=== PATIENT | female | born 1955 | race Caucasian/White ===

== ENCOUNTER 2023-08-31 10:46 | Inpatient (IN) | payer MEDICARE, BC ==
[~2023-08-31] VITALS: Ht 170.2 cm; Wt 116.1 kg
[2023-08-31] MEDS ORDERED: Meclizine 25 MG TAB PO SCH (11:30)
[2023-08-31] MEDS ORDERED: Famotidine 20 MG TAB PO SCH (11:30)
[2023-08-31] MEDS ORDERED: LR 1,000 ML IV SCH (11:30)
[2023-09-01] VITALS (14 sets, daily range): BP systolic 109–119; BP diastolic 51–77; PULSE 65–79; TEMP 97.7–98.8
[2023-09-01] MEDS ORDERED: XALATAN EYE DROPS OU (07:01)
[2023-09-01] MEDS ORDERED: PRILOSEC 20MG20 MG PO (07:01)
[2023-09-01] MEDS ORDERED: FLONASEALLERGY NS (07:02)
[2023-09-01] MEDS ORDERED: BENADRYL25 M2 PO (07:04)
[2023-09-01] MEDS ORDERED: ZYRTEC 10MG10 MG PO (07:06)
[2023-09-01] MEDS ORDERED: Rocuronium 50 MG/5 ML Multi-Dose VIAL ONE ×2 (07:24→08:53)
[2023-09-01] MEDS ORDERED: fentaNYL 50 MCG/ML 2 ML VIAL ONE ×2 (07:24→09:35)
[2023-09-01] MEDS ORDERED: Lidocaine PF 2% (20 MG/ML) 5 ML VIAL ONE (07:25)
[2023-09-01] MEDS ORDERED: NS 100 ML IV ONE (07:25)
[2023-09-01] MEDS ORDERED: dexAMETHasone 10 MG/ML VIAL ONE (07:26)
[2023-09-01] MEDS ORDERED: NS 10 ML IV ONE (07:26)
[2023-09-01] MEDS ORDERED: Ondansetron 4 MG/2 ML VIAL ONE (07:26)
[2023-09-01] MEDS ORDERED: Ondansetron 4 MG/2 ML VIAL IV PRN ×2 (08:15→10:30)
[2023-09-01] MEDS ORDERED: droPERidol 2.5 MG/ML 2 ML VIAL IV PRN (08:15)
[2023-09-01] MEDS ORDERED: hydrALAZINE 20 MG/ML 1 ML VIAL IV PRN (08:15)
[2023-09-01] MEDS ORDERED: HYDROmorphone 1 MG/1 ML SYRINGE [PACU/SDC ONLY] IV PRN (08:15)
[2023-09-01] MEDS ORDERED: fentaNYL 50 MCG/ML 1 ML SYRINGE/VIAL [PACU/SDC ONLY] IV PRN (08:15)
[2023-09-01] MEDS ORDERED: Ketorolac 30 MG/ML VIAL ONE (08:16)
[2023-09-01] MEDS ORDERED: ePHEDrine 50 MG/ML VIAL ONE (08:53)
[2023-09-01] MEDS ORDERED: oxyCODONE 5 MG TAB PO PRN (10:30)
[2023-09-01] MEDS ORDERED: LR 1,000 ML IV SCH (10:30)
[2023-09-01] MEDS ORDERED: HYDROmorphone 0.5 MG/0.5 ML SYRINGE IV PRN (10:30)
[2023-09-01] MEDS ORDERED: Naloxone 0.4 MG/ML VIAL IV PRN (10:30)
--- NOTE | 2023-09-01 10:35 | NUR ---
PT UP TO THE FLOOR AT THIS TIME, A/O X4, VITALS STAPLE, FAMILY AT BEDSIDE, DRESSING TO ABDOMEN COVERING MIDLINE AND 2 LAP SITES CLEAN AND DRY. TOLERATING CLEAR LIQUID DIET WELL, REMAINS ON 2L NC. WILL CONTINUE TO MONITOR.
[2023-09-01] MEDS ORDERED: Acetaminophen 500 MG TAB PO SCH (10:56)
[2023-09-01] MEDS ORDERED: Ibuprofen 600 MG TAB PO SCH (13:56)
[2023-09-01] MEDS ORDERED: Latanoprost 0.005% Ophth Soln 2.5 ML BOTTLE OP SCH (21:00)
[2023-09-02] VITALS (8 sets, daily range): BP systolic 102–119; BP diastolic 58–70; PULSE 63–70; TEMP 97.8–99.1
--- NOTE | 2023-09-02 07:48 | NUR ---
Patient sitting up in bed, A&Ox4. VSS. IV CDI. Denies pain and discomfort. Incision site CDI. Call light within reach
--- NOTE | 2023-09-02 10:00 | NUR ---
Dr Moss aware that patient does not have an IV site and is okay with not restarting
[2023-09-02] MEDS ORDERED: Docusate Sodium 100 MG CAP PO SCH (10:25)
--- NOTE | 2023-09-02 11:03 | NUR ---
Electronic Engineering Draftsperson met with patient to complete intake. Patient sitting up in bed watching tv, having pain in her shoulder and abdomen. Patient verified that she lives in [place] with her Binh ([phone]). She sees Dr. Rupinder Fregoso as her PCP and uses [facility]. Patient has a CPAP at home. She denies having a DPOA and states she is not interested in completing one at this time. 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 She is independent and active. Patient denies any discharge needs at this time. Discharge Plan: Home
--- NOTE | 2023-09-02 11:42 | NUR ---
Initial visit; Patient very pleasant and thanked Wood Furniture Assembler for offering prayer, encouragement and God's blessings.
[2023-09-03] VITALS (8 sets, daily range): BP systolic 110–139; BP diastolic 67–83; PULSE 57–67; TEMP 97.5–97.9
--- NOTE | 2023-09-03 07:38 | NUR ---
Pt sitting up in chair. A&Ox4. VSS. S1S2. Clear lung sounds on RA. ABD is rounded, soft, non-tender with audible bowel sounds. Per Pt, no BM this AM. Palpable pulses in all extremities with normal strength. No IV site. Midline incision has gauze dressing, CDI. x2 lap sites in LRQ - bandaids, CDI. Pt reports pain 3/10 when moving or first gettting up, but "nothing out of the abdnormal." Pt denies n/v, dizziness. Pt reported mild headache. Administered meds as per EMAR. Pt did IS 3 times with proper technique - raised to [id number]. No further needs at this time. Call light in reach.
--- NOTE | 2023-09-03 10:43 | NUR ---
Pt reported they had a large, hard BM a few minutes after X-Ray was taken. Pt flushed prior to notifying staff. Per Pt, did not see if bridge had passed through. No further needs at this time. Call light in reach.
[2023-09-03] MEDS ORDERED: Polyethylene Glycol 3350 17 GM PDS PO SCH (12:21)
--- NOTE | 2023-09-03 14:30 | NUR ---
Educated Pt and family on discharge instructions and information. Answered Pt questions. No further needs. Pt does not have an IV. Pt transported to vehicle by WC, accompanied by PCT.
== END 2023-09-03 14:31 | disposition home or self-care (01) | DRG 345 ==
LOC: INPTSU 09-01 06:02 → SDCO 09-01 06:02 → EDSTATUS 09-01 08:00 → SURG 09-01 10:35
PROVIDERS: ADMIT Surgery
PROC: 0DJD4ZZ Inspection of Lower Intestinal Tract, Percutaneous Endoscopic Approach (ICD-10-PCS; principal; 2023-09-01 08:00)
PROC: 0WJG0ZZ Inspection of Peritoneal Cavity, Open Approach (ICD-10-PCS; 2023-09-01 08:00)
DX: T18.3XXA Foreign body in small intestine, initial encounter (principal); Z68.41 Body mass index [BMI] 40.0-44.9, adult; K42.9 Umbilical hernia without obstruction or gangrene; F41.9 Anxiety disorder, unspecified; G89.29 Other chronic pain; F32.A Depression, unspecified; E66.01 Morbid (severe) obesity due to excess calories; I45.10 Unspecified right bundle-branch block; G47.33 Obstructive sleep apnea (adult) (pediatric); G62.9 Polyneuropathy, unspecified; K29.70 Gastritis, unspecified, without bleeding; K57.90 Diverticulosis of intestine, part unspecified, without perforation or abscess without bleeding; Z53.31 Laparoscopic surgical procedure converted to open procedure; Z90.49 Acquired absence of other specified parts of digestive tract; Z88.6 Allergy status to analgesic agent; Z91.011 Allergy to milk products; Z90.89 Acquired absence of other organs; Z90.710 Acquired absence of both cervix and uterus; Z79.899 Other long term (current) drug therapy; Z99.89 Dependence on other enabling machines and devices
CPT/HCPCS: A9284; J0665; J0690; J1100; J1170; J1650; J1885; J2405; J2704; J3010; J7120

== ENCOUNTER 2023-12-03 10:09 | Inpatient (IN) | payer MEDICARE, BC ==
[~2023-12-03] VITALS: Ht 170.2 cm; Wt 114.8 kg
[~2023-12-03 10:09] MED LIST: BENADRYL25 M2 PO; FLONASEALLERGY NS; PRILOSEC 20MG20 MG PO; XALATAN EYE DROPS OU; ZYRTEC 10MG10 MG PO
[2023-12-03 10:30] LABS: BASO % 0.4 % (0.0-2.0); EOS # 0.1 K/mm3 (0.0-0.7); EOS % 1.4 % (0.0-4.0); GRAN # 5.2 K/mm3 (1.4-6.5); GRAN % 65.5 % (42.2-75.2); HEMATOCRIT 39.5 % (37.0-47.0); HEMOGLOBIN 12.5 g/dl (12.5-16.0); LYMPH # 2.1 K/mm3 (1.2-3.4); LYMPH % 26.4 % (20.0-51.0); MEAN CELL VOLUME 87 fl (80.0-100.0); MEAN CORPUSCULAR HEMOGLOBIN 28 pg (27-31); MEAN CORPUSCULAR HGB CONC 32 g/dl (33.0-37.0); MEAN PLATELET VOLUME 9.8 fl (7.4-10.4); MONO # 0.5 K/mm3 (0.1-0.6); PLATELET COUNT 220 K/mm3 (130-400); RED BLOOD COUNT 4.55 M/mm3 (4.10-5.30); REDCELL DISTRIBUTION WIDTH-CV 13.2 % (11.5-14.5)
[2023-12-03] MEDS ORDERED: HYDROmorphone 0.5 MG/0.5 ML SYRINGE IV ONE ×3 (10:30→14:15)
[2023-12-03 10:34] LABS: INR 0.9 (0.8-3.0); PROTHROMBIN TIME 10.4 SECONDS (9.7-12.8)
[2023-12-03 11:17] LABS: ALBUMIN 3.8 g/dL (3.4-4.8); BILIRUBIN,TOTAL 0.2 mg/dL (0.2-1.2); CALCIUM 9.4 mg/dL (8.4-10.2); CREATININE, serum 0.77 mg/dL (0.57-1.11); POTASSIUM 3.9 mEq/L (3.5-4.5); TOTAL PROTEIN 7.2 g/dl (6.2-8.1)
[2023-12-03] MEDS ORDERED: D5 1/2 NS 1,000 ML IV SCH (12:30)
[2023-12-03] MEDS ORDERED: Morphine 4 MG/ML VIAL IV PRN (12:30)
[2023-12-03] MEDS ORDERED: Naloxone 0.4 MG/ML VIAL IV PRN (12:30)
[2023-12-03] MEDS ORDERED: oxyCODONE 5 MG TAB PO PRN (12:30)
[2023-12-03 12:53] LABS: COLLECTION METHOD IN
[2023-12-03 13:04] LABS: PH 7.5 (5.0-8.5); URINE APPEARANCE CLEAR (CLEAR/HAZY); URINE BLOOD NEGATIVE (NEGATIVE); URINE COLOR YELLOW (YELLOW); URINE GLUCOSE NEGATIVE (NEGATIVE); URINE KETONE NEGATIVE (NEGATIVE); URINE NITRATE NEGATIVE (NEGATIVE); URINE PROTEIN(semi-quant) NEGATIVE (NEGATIVE)
[2023-12-03] MEDS ORDERED: Acetaminophen 500 MG TAB PO SCH (13:28)
--- NOTE | 2023-12-03 15:18 | NUR ---
Pt. to the floor from ER. Pt. is A&OX3. Pt. positioned in bed for comfort. Pt. denies needs at this time.
[2023-12-03 15:28] VITALS: BP 115/73; PULSE 69; TEMP 98.7
--- NOTE | 2023-12-03 15:51 | NUR ---
Pt. sitting sitting up in bed. Rates pain at a 4 on pain scale at this time. Splint to rt. lower extremity. Pt. denies further needs, call light within reach.
[2023-12-03 17:00] VITALS: BP_SYST 115
[2023-12-03] MEDS ORDERED: Ondansetron 4 MG/2 ML VIAL IV PRN (18:30)
[2023-12-03 18:40] VITALS: BP 115/73; PULSE 68; TEMP 98.7
[2023-12-03 20:00] VITALS: BP 112/71; BP 157/67; PULSE 76; PULSE 93; TEMP 97.9; TEMP 98.7
[2023-12-03 20:01] VITALS: BP_SYST 126
--- NOTE | 2023-12-03 20:01 | NUR ---
Patient assessed at this time, see shift assessment, reports pain to right leg PS of 5/10, medicated with oxycodone, with IV infusing well on left forearm, splint to right leg CDI, NPO postmidnight instructed, ice pack on, denies further needs, call light and personal items within reach, will continue to monitor.
[2023-12-03 23:58] VITALS: BP 126/79; PULSE 77; TEMP 98.3
[2023-12-04] VITALS (12 sets, daily range): BP systolic 104–146; BP diastolic 67–91; PULSE 62–78; TEMP 97.4–98.2
--- NOTE | 2023-12-04 04:10 | NUR ---
Patient complained of pain on her right leg, PS of 7/10, medicated with oxycodone and tylenol at this time with sips of water, NPO maintained, patient doesn't want morphine, ICE pack on, will continue to monitor.
--- NOTE | 2023-12-04 06:26 | NUR ---
Patient resting in bed, with CPAP on, looks comfortable.
[2023-12-04] MEDS ORDERED: Famotidine 20 MG TAB PO SCH (09:00)
[2023-12-04] MEDS ORDERED: Meclizine 25 MG TAB PO SCH (09:00)
[2023-12-04] MEDS ORDERED: LR 1,000 ML IV SCH (09:00)
[2023-12-04] MEDS ORDERED: FERROUS SU325 MG/TAB PO (09:11)
[2023-12-04] MEDS ORDERED: Ondansetron 4 MG/2 ML VIAL IV PRN (10:30)
--- NOTE | 2023-12-04 10:54 | NUR ---
PT RESTING IN BED, ALERT AND ORIENTEDX4. RATES PAIN 6/10 IN THE RIGHT LEG, GAVE PAIN PILL. PT IS VERY NAUSEOUS DUE TO THE PAIN. GAVE ZOFRAN. PT NO LONGER NPO. SURGEY WILL BE TOMORROW PER DR DOVER. ASSESSED PT. UNABLE TO FEEL PEDAL PULSE IN RIGHT FOOT DUE TO CAST. BLOOD RETURN GOOD IN TOES. PT FEELS ANXIOUS THAT SHE HAS TO WAIT ANOTHER DAY FOR SURGEY. GAVE MORNING MEDS. NO OTHER COMPLAINTS AT THIS TIME. CALL LIGHT WITHIN REACH.
--- NOTE | 2023-12-04 12:10 | NUR ---
Data: Patient accepted spiritual care visit offered during Accounting Specialist rounds. Patient's sister and friend are visiting. They had been singing hymns. Patient accepted prayer. Assessment: Patient is enjoying the company of her visitors; appreciates prayer. Plan of Care: Accounting Specialist accepted recommendations from Patient's Friend for Faith music artists. Accounting Specialist offered a prayer. All thanked Accounting Specialist for the visit. Chaplains will remain available as needed/requested while Patient is admitted to this hospital.
--- NOTE | 2023-12-04 13:10 | NUR ---
PT IS VERY ANXIOUS ABOUT SURGERY AND IT BEING PUSHED BACK TO TOMORROW. PT THINKS ANXIETY IS MAKING HER NAUSOUS. PT REQUESTED ANXIETY MEDS. CALLED LUIZ NAVARRO AND ASKED ABOUT. NO NEW ORDERS GIVEN. SAID SHE WOULD GET BACK TO ME.
[2023-12-04] MEDS ORDERED: clonazePAM 0.5 MG TAB PO PRN (14:30)
--- NOTE | 2023-12-04 14:30 | NUR ---
Pattern Wheel Maker met with patient to complete initial intake and discuss discharge planning. Patient's friend, Nahomi is at bedside. Patient stated her daughter, Che (ph#[phone]) has also been here. Patient lives in [place] with her , Binh (ph#[phone]) and sees Dr. Gonzalez for primary care. Patient gets medications from [facility] with no difficulties and normally does not require any DME besides a CPAP. Patient stated she is normally independent with ADLS including driving. 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 Patient does not have DPOA-HC and would want to talk with her before deciding if she would want to complete one or not. SW advised patient that she will assist with any discharge recommendations. Discharge Planning: Surgery tomorrow, PT/OT ricarda to follow
--- NOTE | 2023-12-04 16:59 | NUR ---
TALKED TO RAMON DEE ABOUT SWITCHING PT TO DILAUDED INSTEAD OF MORPHINE DUE TO MORPHINE MAKING PT NAUSEOUS AND PT IS ALREADY UNABLE TO KEEP ANYTHING DOWN AT THIS TIME.
[2023-12-04] MEDS ORDERED: HYDROmorphone 0.5 MG/0.5 ML SYRINGE IV PRN (18:00)
--- NOTE | 2023-12-04 20:40 | NUR ---
PT A&O X4 LAYING IN BED. VSS. RATING PAIN TO RLE 4-510, GAVE PRN PAIN MED PER MAR. PT UNABLE TO KEEP PO INTAKE DOWN WITHOUT FEELING N/V. SPLINT TO RLE INTACT. SANCHEZ TO DD WITH YELLOW OUTPUT. IVF INFUSING TO LEFT AC. SCD TO LLE. PT EDUCATED ON NPO AT MIDNIGHT. DENIES FURTHER NEEDS. CALL LIGHT IN REACH
[2023-12-05] VITALS (12 sets, daily range): BP systolic 103–131; BP diastolic 65–87; PULSE 63–78; TEMP 97.8–98.5
--- NOTE | 2023-12-05 05:52 | NUR ---
PT RESTING IN BED WITH UNLABORED RESP & CPAP ON. CALL LIGHT IN REACH
[2023-12-05 06:05] LABS: BASO % 0.1 % (0.0-2.0); EOS % 0.2 % (0.0-4.0); GRAN # 7.6 K/mm3 (1.4-6.5); GRAN % 78.7 % (42.2-75.2); HEMOGLOBIN 10.7 g/dl (12.5-16.0); LYMPH # 1.4 K/mm3 (1.2-3.4); LYMPH % 14.8 % (20.0-51.0); MEAN CELL VOLUME 84 fl (80.0-100.0); MEAN CORPUSCULAR HEMOGLOBIN 28 pg (27-31); MEAN CORPUSCULAR HGB CONC 33 g/dl (33.0-37.0); MONO # 0.6 K/mm3 (0.1-0.6); MONO % 5.9 % (1.7-9.3); PLATELET COUNT 200 K/mm3 (130-400); RED BLOOD COUNT 3.85 M/mm3 (4.10-5.30); REDCELL DISTRIBUTION WIDTH-CV 13.4 % (11.5-14.5)
[2023-12-05 06:06] LABS: HEMATOCRIT 32.5 % (37.0-47.0)
[2023-12-05 06:23] LABS: CALCIUM 8.7 mg/dL (8.4-10.2); CREATININE, serum 0.71 mg/dL (0.57-1.11); POTASSIUM 3.9 mEq/L (3.5-4.5)
--- NOTE | 2023-12-05 08:30 | NUR ---
Pt. sitting up in bed. Pt. is A&Ox3, assessment complete. Pt. reports Chest pain at a 5 on pain scale, LUIZ Khan notified, ekg and troponin ordered. Pt. also reports pain to rt. leg at a 5. Gave meds per orders. Pt. also reports nausea, gave meds per orders. Consents for surgery signed. Pt. denies further needs, call light within reach.
[2023-12-05] MEDS ORDERED: fentaNYL 50 MCG/ML 5 ML VIAL ONE (08:33)
[2023-12-05] MEDS ORDERED: Ondansetron 4 MG/2 ML VIAL ONE (08:33)
[2023-12-05] MEDS ORDERED: Lidocaine PF 2% (20 MG/ML) 5 ML VIAL ONE (08:33)
--- NOTE | 2023-12-05 09:15 | NUR ---
Dr. Coffman notified of elevated troponin.
--- NOTE | 2023-12-05 21:00 | NUR ---
PT A&O X4 LAYING IN BED. VSS. PT RATING PAIN TO RLE /10 & DENIES THE NEED FOR PAIN MEDS. DENIES N/V. SPLINT TO RLE INTACT & ELEVATED ON PILLOW WITH ICEPACKS IN PLACE. SANCHEZ TO DD WITH YELLOW OUTPUT. SCD TO LLE. PT DENYING OTHER NEEDS. CALL LIGHT IN REACH
[2023-12-06] VITALS (12 sets, daily range): BP systolic 107–132; BP diastolic 69–87; PULSE 67–76; TEMP 97.7–98.4
--- NOTE | 2023-12-06 06:23 | NUR ---
PT RESTING IN BED WITH UNLABORED RESP & HOME CPAP ON
[2023-12-06 06:35] LABS: BASO % 0.2 % (0.0-2.0); EOS % 0.5 % (0.0-4.0); GRAN # 5.9 K/mm3 (1.4-6.5); GRAN % 70.6 % (42.2-75.2); HEMOGLOBIN 11.5 g/dl (12.5-16.0); LYMPH # 1.8 K/mm3 (1.2-3.4); LYMPH % 21.8 % (20.0-51.0); MEAN CELL VOLUME 85 fl (80.0-100.0); MEAN CORPUSCULAR HEMOGLOBIN 29 pg (27-31); MEAN CORPUSCULAR HGB CONC 34 g/dl (33.0-37.0); MEAN PLATELET VOLUME 10.1 fl (7.4-10.4); MONO # 0.5 K/mm3 (0.1-0.6); MONO % 6.5 % (1.7-9.3); PLATELET COUNT 212 K/mm3 (130-400); RED BLOOD COUNT 4.03 M/mm3 (4.10-5.30); REDCELL DISTRIBUTION WIDTH-CV 13.3 % (11.5-14.5)
[2023-12-06 06:37] LABS: HEMATOCRIT 34.1 % (37.0-47.0)
[2023-12-06 06:48] LABS: CREATININE, serum 0.7 mg/dL (0.57-1.11); POTASSIUM 3.9 mEq/L (3.5-4.5)
--- NOTE | 2023-12-06 10:08 | NUR ---
Pt. sitting up in bed. Pt. is A&OX3, assessment complete. INT to lt. ac leaking. Site discontinued. New site started, 20g to rt. hand. Pt. tolerated well. Pt. reports pain to rt. foot at a 4 on pain scale, gave Tylenol. Pt. denies further needs, call light within reach.
--- NOTE | 2023-12-06 20:00 | NUR ---
PT A&O X4 LAYING IN BED WITH SISTER AT BEDSIDE. VSS. REPORTING PAIN TO RLE IS 3/10, GAVE SCHEDULED TYLNEOL & ICEPACK. SPLINT TO RLE INTACT & ELEVATED ON PILLOW. PT DENIES N/V. SANCHEZ TO DD WITH YELLOW OUTPUT. IVF INFUSING TO RT WRIST VIA PUMP. SCD TO LLE. PT DENIES OTHER NEEDS AT THIS TIME. CALL LIGHT IN REACH
[2023-12-06] MEDS ORDERED: diphenhydrAMINE 25 MG CAP PO PRN (21:15)
[2023-12-07] VITALS (17 sets, daily range): BP systolic 103–132; BP diastolic 50–90; PULSE 62–89; TEMP 97.1–968.1
--- NOTE | 2023-12-07 | NUR ---
PT REPORTING PAIN 10/15 TO RLE & BACK, GAVE PRN DILAUDID PER JUL. PT NOW NPO. HOME CPAP ON. PT DENYING OTHER NEEDS. CALL LIGHT IN REACH
[2023-12-07] MEDS ORDERED: Meclizine 25 MG TAB PO SCH (06:00)
[2023-12-07 06:01] LABS: BASO % 0.4 % (0.0-2.0); EOS # 0.2 K/mm3 (0.0-0.7); GRAN # 4.7 K/mm3 (1.4-6.5); GRAN % 62.5 % (42.2-75.2); HEMOGLOBIN 11.5 g/dl (12.5-16.0); LYMPH # 2.1 K/mm3 (1.2-3.4); LYMPH % 27.5 % (20.0-51.0); MEAN CELL VOLUME 88 fl (80.0-100.0); MEAN CORPUSCULAR HEMOGLOBIN 29 pg (27-31); MEAN CORPUSCULAR HGB CONC 33 g/dl (33.0-37.0); MEAN PLATELET VOLUME 9.9 fl (7.4-10.4); MONO # 0.6 K/mm3 (0.1-0.6); MONO % 7.3 % (1.7-9.3); PLATELET COUNT 208 K/mm3 (130-400); RED BLOOD COUNT 4.04 M/mm3 (4.10-5.30); REDCELL DISTRIBUTION WIDTH-CV 13.7 % (11.5-14.5)
[2023-12-07 06:17] LABS: CREATININE, serum 0.69 mg/dL (0.57-1.11); HEMATOCRIT 35.4 % (37.0-47.0); POTASSIUM 3.8 mEq/L (3.5-4.5)
[2023-12-07] MEDS ORDERED: dexAMETHasone 10 MG/ML VIAL ONE (06:36)
[2023-12-07] MEDS ORDERED: NS 10 ML IV ONE (06:36)
[2023-12-07] MEDS ORDERED: fentaNYL 50 MCG/ML 2 ML VIAL ONE (06:36)
[2023-12-07] MEDS ORDERED: Lidocaine PF 2% (20 MG/ML) 5 ML VIAL ONE (06:36)
[2023-12-07] MEDS ORDERED: Ondansetron 4 MG/2 ML VIAL ONE (06:36)
[2023-12-07] MEDS ORDERED: Ondansetron 4 MG/2 ML VIAL IV PRN ×2 (06:45→09:45)
[2023-12-07] MEDS ORDERED: hydrALAZINE 20 MG/ML 1 ML VIAL IV PRN (06:45)
[2023-12-07] MEDS ORDERED: fentaNYL 50 MCG/ML 1 ML SYRINGE/VIAL [PACU/SDC ONLY] IV PRN (06:45)
[2023-12-07] MEDS ORDERED: HYDROmorphone 1 MG/1 ML SYRINGE [PACU/SDC ONLY] IV PRN (06:45)
[2023-12-07] MEDS ORDERED: droPERidol 2.5 MG/ML 2 ML VIAL IV PRN (06:45)
--- NOTE | 2023-12-07 06:54 | NUR ---
PT OFF FLOOR TO OR
--- NOTE | 2023-12-07 07:00 | NUR ---
Pt down in surgery this AM during report. Pt's sister in room, Janie. No needs at this time.
[2023-12-07] MEDS ORDERED: Midazolam 2 MG/2 ML VIAL ONE (07:09)
[2023-12-07] MEDS ORDERED: LR 1,000 ML IV ONE (08:48)
[2023-12-07] MEDS ORDERED: Magnes Hydrox (MOM) 80 MG/ML 30 ML CUP PO PRN (09:45)
[2023-12-07] MEDS ORDERED: NS 1,000 ML IV SCH (09:45)
[2023-12-07] MEDS ORDERED: traMADol 50 MG TAB PO PRN (10:00)
--- NOTE | 2023-12-07 11:05 | NUR ---
PATIENT BACK IN ROOM POST-OP. ORIENTED BUT DROWSY. VSS. PACU REPORTS GIVING PAIN MEDS BEFORE TRANSFER TO FLOOR, PATIENT APPEARS COMFORTABLE. BEDSIDE RN AT BEDSIDE, SEE CHARTING. PATIENT DOING WELL. AT BEDSIDE. CALL LIGHT IN REACH.
--- NOTE | 2023-12-07 11:05 | NUR ---
Pt back in room from PACU. Pt A&Ox4. VSS. S1S2. Clear lungs on 1.5 L O2 via NC. ABD round, soft, non-tender with audible bowel sounds. Palpable pulses in all extremities. Pt able to feel and wiggle toes on operative extremity. IV in R hand is patent with fluids from PACU, no issues. Pt stating pain 4/10 in R ankle and knee - ice packs in place, administered Tylenol. Pt's at bedside. Pt denies n/v - gave Pt some water and jello. LATRICIA dressing on R knee/leg CDI. Cole in place iwht clear, yellow urine. No further needs. Call light in reach.
--- NOTE | 2023-12-07 13:21 | NUR ---
Pt reporting machine keeps dinging. This RN went in to check on Pt. Pt O2 was 89. Turned O2 back on - 2 L via NC. Call light in reach.
--- NOTE | 2023-12-07 14:01 | NUR ---
Pt working with PT. Pt reporting pain 6-7/10. Pt requesting more pain meds. This RN discussed options with charge nurse. Charge nurse and this RN both agree Pt needs to hold off on next pain meds. Pt had Oxycodone and Tramadol within last 2 hours, Pt on 2 L via NC, Pt BP 110s. Pt agreeable to plan. PT going to position Pt with ice packs. This RN will reassess Pt over next hour.
[2023-12-07] MEDS ORDERED: ceFAZolin 2 G in Water For Injection,Sterile 20 ML IV SCH (15:00)
--- NOTE | 2023-12-07 15:46 | NUR ---
Regional Retail Sales Manager met with patient and her at bedside following her surgery this morning. PT/OT are recommending IPR. SW met with patient and discussed options including [facility]. Patient's preferences are 1) [facility] and 2) [facility] as she stated it would be easier for her family to visit. HAWK contacted [facility] to give referral. HAWK also contacted Natalie at [facility] and left a message after faxing referral. Discharge Plan: [facility] vs [facility]
[2023-12-07] MEDS ORDERED: Sennosides/Docusate 8.6-50 MG TAB PO SCH (21:00)
[2023-12-08] VITALS (12 sets, daily range): BP systolic 109–127; BP diastolic 60–78; PULSE 58–75; TEMP 97–98.4
--- NOTE | 2023-12-08 04:02 | NUR ---
bal vaca bed, alert and oriented x4 with family at bedside. denies chest pain and shortness of breath. IV in RH is patent, site is CDI with NS running at 75 ml/hr. RLE with shima wrap, boot, and ice applied. pt has no further needs, questions or concerns at this time. fall precautions in place, call light wtihin reach. will continue to monitor.
[2023-12-08 06:11] LABS: BASO % 0.1 % (0.0-2.0); EOS % 0.1 % (0.0-4.0); GRAN # 11.5 K/mm3 (1.4-6.5); GRAN % 82.2 % (42.2-75.2); HEMOGLOBIN 10.4 g/dl (12.5-16.0); LYMPH # 1.6 K/mm3 (1.2-3.4); LYMPH % 11.1 % (20.0-51.0); MEAN CELL VOLUME 86 fl (80.0-100.0); MEAN CORPUSCULAR HEMOGLOBIN 28 pg (27-31); MEAN CORPUSCULAR HGB CONC 33 g/dl (33.0-37.0); MEAN PLATELET VOLUME 9.6 fl (7.4-10.4); MONO # 0.8 K/mm3 (0.1-0.6); MONO % 5.9 % (1.7-9.3); PLATELET COUNT 229 K/mm3 (130-400); REDCELL DISTRIBUTION WIDTH-CV 13.2 % (11.5-14.5)
[2023-12-08 06:15] LABS: HEMATOCRIT 31.9 % (37.0-47.0)
[2023-12-08 06:25] LABS: CALCIUM 9.2 mg/dL (8.4-10.2); CREATININE, serum 0.73 mg/dL (0.57-1.11); POTASSIUM 4.4 mEq/L (3.5-4.5)
--- NOTE | 2023-12-08 06:45 | NUR ---
Pt laying in bed. Sister, Lulu, at bedside. No needs at this time. Call light in reach.
--- NOTE | 2023-12-08 08:10 | NUR ---
Pt sitting up in bed. Ambulated to chair. A&Ox4. VSS. S1S2. Clear lungs. ABd round, soft, non-tender with audible bowel sounds. Palpable pulses in all extremities. Pt states pain in R leg is 7/10. Applied ice packs. SCDs on L leg, Thich high VAZQUEZ on L leg, boot on R lower leg. LATRICIA bandage on R knee is CDI. INT in R hand is patent. No further needs at this time. Call light in reach. Sister, Lulu, at bedside.
[2023-12-08] MEDS ORDERED: oxyCODONE 5 MG TAB PO PRN ×2 (09:15)
--- NOTE | 2023-12-08 15:32 | NUR ---
Call Circuit Worker spoke with Bianka at [facility] who advised they can accept patient on Monday. SW met with patient and she confirmed this would be her first preference as she wants to be closer to home. HAWK updated Hospitalist on discharge plan. Discharge Plan: [facility] Monday
--- NOTE | 2023-12-08 18:30 | NUR ---
report recieved from akil robb. pt resting in bed watching tv with at bedside. pt wearing CAM boot. pt reporting 4/10 pain but refuses PRN. call light in reach. all needs met at this time.
--- NOTE | 2023-12-08 19:42 | NUR ---
shift assessment complete, see documentation. pt tolerated hs meds well. pt now reporting 6/10 RLE pain, prn tramadol administered per orders. pt assisted with oral care and now resting in bed watching tv. fall precautions in place. call light in reach. all needs met at this time.
[2023-12-08] MEDS ORDERED: Latanoprost 0.005% Ophth Soln 2.5 ML BOTTLE OP SCH (21:00)
--- NOTE | 2023-12-08 23:03 | NUR ---
pt reporting 4/10 RLE pain, scheduled tylenol administered per orders. pt also requesting prn benadryl for sleep, administered per orders. fall precautions in place. call light in reach. all needs met at this time.
[2023-12-09] VITALS (12 sets, daily range): BP systolic 108–131; BP diastolic 65–83; PULSE 59–75; TEMP 97.6–98.4
[2023-12-09 06:31] LABS: BASO % 0.3 % (0.0-2.0); EOS % 0.2 % (0.0-4.0); GRAN # 7.7 K/mm3 (1.4-6.5); GRAN % 66.1 % (42.2-75.2); HEMOGLOBIN 10.2 g/dl (12.5-16.0); LYMPH # 3.1 K/mm3 (1.2-3.4); LYMPH % 26.4 % (20.0-51.0); MEAN CELL VOLUME 87 fl (80.0-100.0); MEAN CORPUSCULAR HEMOGLOBIN 28 pg (27-31); MEAN CORPUSCULAR HGB CONC 33 g/dl (33.0-37.0); MEAN PLATELET VOLUME 9.6 fl (7.4-10.4); MONO # 0.8 K/mm3 (0.1-0.6); MONO % 6.7 % (1.7-9.3); PLATELET COUNT 223 K/mm3 (130-400); RED BLOOD COUNT 3.59 M/mm3 (4.10-5.30); REDCELL DISTRIBUTION WIDTH-CV 13.6 % (11.5-14.5)
[2023-12-09 06:32] LABS: HEMATOCRIT 31.1 % (37.0-47.0)
[2023-12-09 06:40] LABS: CALCIUM 9.2 mg/dL (8.4-10.2); CREATININE, serum 0.66 mg/dL (0.57-1.11); POTASSIUM 3.8 mEq/L (3.5-4.5)
--- NOTE | 2023-12-09 06:45 | NUR ---
Pt sleeping in bed. Call light in reach.
--- NOTE | 2023-12-09 07:40 | NUR ---
Pt sitting up in bed. A&Ox4. VSS. S1S2. Clear lungs on RA. ABD round,s oft, non-tender with audible bowel sounds. Palpable pulses in all extremities. Mild swelling in right foot. Offerred to elevate foot and remove CAM boot, Pt declined at this time. Incision site is CDI with LATRICIA wrap. INT in R hand, patent. TEDs and SCDs on L leg. Pt declined on R leg due to not removing boot. Pt reports tolerable pain 4/10 this AM in R knee and ankle. Pt requesting for Cole catheter to be removed due to smell. Received orders and D/C'ed Pt's Cole. Pt tolerated well. Pt requesting a bath. Provided Pt with supplies for washcloth bed bath. Pt stated she would complete the bath herself. No further needs. Call light in reach.
--- NOTE | 2023-12-09 12:50 | NUR ---
HAWK faxed clinical updates to [facility] for planned discharge on Monday. HAWK visited with patient to clarify her transportation to . Patient states her will drive her as long as it isn't early on Monday morning. Assured patient that her discharge will not be early on Monday. Discharge plan: [facility]
--- NOTE | 2023-12-09 20:30 | NUR ---
UPON SHIFT ASSESSMENT, VIMAL WAS IN BED WITH VISITING BEDSIDE. RT LLE WRAPPED IN LATRICIA AND CDI, 13 PIPE NOTED AND WOUND EDGES APPROXIMATE. DISTAL PULSES, SENSATION AND CAP REFILL IN RLE WNL. VS ARE WNL. PATIENT C/0 5/10 PAIN AND TRAMADOL ADMINISTERED. STATES NO OTHER NEEDS AT THIS TIME. BEDALARM ON AND CALL LIGHT WITHIN REACH.
[2023-12-10] VITALS (10 sets, daily range): BP systolic 108–142; BP diastolic 71–81; PULSE 72–78; TEMP 97.7–98.7
--- NOTE | 2023-12-10 06:35 | NUR ---
Pt sleeping in bed with CPAP on. Call light in reach.
--- NOTE | 2023-12-10 07:50 | NUR ---
Pt sitting up in the chair. A&Ox4. VSS. S1S2. Clear lungs on RA. ABD round, soft, non-tender with audible bowel sounds. Palpable pulses in all extremities. Pt states pain is tolerable at this time 3/10 in R ankle. Pt denies n/v, headache. No IV, per provider order. No further needs. Call light in reach.
--- NOTE | 2023-12-10 09:47 | NUR ---
Pt reporting heartburn. Pt laying on back, sat Pt up in bed. Pt said she normally takes baking soda and water and that helps. Notified Pt we do not have baking soda. Pt requested Milk of Mag as a substitute for baking soda. No further needs. Call light in reach.
--- NOTE | 2023-12-10 11:08 | NUR ---
HAWK sent clinical updates to [facility]. HAWK reviewed Medicare IM form with patient for discharge tomorrow. Patient voiced understanding and signed form, original on chart, copy to patient. Discharge plan: [facility]
--- NOTE | 2023-12-10 20:32 | NUR ---
PT REPORTING PAIN TO RT LOWER LEG 10/15. LATRICIA WRAP AT KNEE BUNCHED AND REWRAPPED. ELEVATED RT LEG HIGHER ON ANOTHER PILLOW AND REPLACED ICE PACK. MEDICATED WITH OXYCODONE 5MG PO NOW. NO IV SITE.
--- NOTE | 2023-12-10 21:39 | NUR ---
PT STILL HAVING PAIN, TRAMADOL 100MG PO GIVEN WITH BENADRYL 25MG PO FOR SLEEP. PT HAS CPAP ON.
--- NOTE | 2023-12-10 23:00 | NUR ---
PT RESTING, REPORTS PAIN HAS LESSENED. REFUSES TYLENOL AT THIS TIME.
[2023-12-11] VITALS: BP 123/84; PULSE 67; TEMP 98.2
[2023-12-11 04:00] VITALS: BP 127/87; PULSE 64; TEMP 97.6
--- NOTE | 2023-12-11 06:45 | NUR ---
Pt sitting up in bed. Provider just unwrapped bandage form R lower leg. Incisions WA with sharath. No needs at this time. Call light in reach.
[2023-12-11 07:10] VITALS: BP 123/78; PULSE 69; TEMP 98
--- NOTE | 2023-12-11 07:40 | NUR ---
Pt laying in bed. Requested to go to bathroom. Rewrapped R leg. Incision sites are WA with sharath in place. Placed 4x4 gauze over incision sites and wrapped with LATRICIA bandage. Pt walked to bathroom in CAM boot with walker. Pt in chair. A&Ox4. VSS. S1S2. Clear lungs on RA. ABD round, soft, non-tender with audible bowel sounds. No IV site. Palpable pulses. No further needs. Call light in reach.
[2023-12-11] MEDS ORDERED: TYLENOL 500MG500 MG PO (08:52)
[2023-12-11] MEDS ORDERED: SENEXON-S 50-81 EACH PO (08:52)
[2023-12-11] MEDS ORDERED: ROXICODONE 55 MG/TAB PO (08:54)
[2023-12-11 09:25] VITALS: BP_SYST 123
--- NOTE | 2023-12-11 10:55 | NUR ---
Edge Stripper contacted Nataile at [facility] to coordinate discharge. HAWK faxed discharge orders and provided report numbers to Hospitalist and RN. HAWK advised Natalie that patient reported this morning her should arrive around 1130 to pick her up. HAWK met with patient who confirmed she is in agreement with discharge plan. Discharge Plan: [facility] today
[2023-12-11 11:04] VITALS: BP 131/70; PULSE 76; TEMP 97.9
--- NOTE | 2023-12-11 12:12 | NUR ---
Pt transferred to vehicle via by CIARAN Stark. Called report to [facility]. No further needs.
== END 2023-12-11 12:20 | disposition swing bed (61) | DRG 494 ==
LOC: COL.ER 10:09 → SURG 12:29
PROVIDERS: Emergency Medicine; Internal Medicine; Orthopaedic Surgery; Physician Assistant; ADMIT Internal Medicine
PROC: 0QSG06Z Reposition Right Tibia with Intramedullary Internal Fixation Device, Open Approach (ICD-10-PCS; 2023-12-07)
PROC: 0QSJ04Z Reposition Right Fibula with Internal Fixation Device, Open Approach (ICD-10-PCS; principal; 2023-12-07 07:30)
DX: S82.61XA Displaced fracture of lateral malleolus of right fibula, initial encounter for closed fracture (principal); S89.191A Other physeal fracture of lower end of right tibia, initial encounter for closed fracture; Z96.642 Presence of left artificial hip joint; W01.0XXA Fall on same level from slipping, tripping and stumbling without subsequent striking against object, initial encounter; M16.0 Bilateral primary osteoarthritis of hip; H40.9 Unspecified glaucoma; J30.2 Other seasonal allergic rhinitis; G47.33 Obstructive sleep apnea (adult) (pediatric); K21.9 Gastro-esophageal reflux disease without esophagitis; I45.10 Unspecified right bundle-branch block; Z88.6 Allergy status to analgesic agent; Z90.89 Acquired absence of other organs; Z90.49 Acquired absence of other specified parts of digestive tract; Z90.710 Acquired absence of both cervix and uterus; Y93.89 Activity, other specified; Y92.89 Other specified places as the place of occurrence of the external cause; Z79.899 Other long term (current) drug therapy; Z99.89 Dependence on other enabling machines and devices; Z23 Encounter for immunization
CPT/HCPCS: A4314; A9284; C1713; C1769; J0690; J1100; J1170; J1650; J2250; J2405; J2704; J3010; J7030; J7120; L4386